=== PATIENT | female | born 1995 | race African-American/Black ===

== ENCOUNTER 2019-06-27 15:51 | Emergency (ER) | payer OTHER ==
[~2019-06-27] VITALS: Ht 160 cm; Wt 81.6 kg
--- NOTE | 2019-06-27 16:13 | ED Respiratory ---
General Chief Complaint: Respiratory Problems Stated Complaint: ELEVATED HEARTRATE Nursing Triage Note: PATIENT STATES HAS BEEN TRAVELING [facility] 05-30 TO 06-11 AND [facility] JUNE 19 COUGH, STARTED FEVER AND DIARRHEA SINCE YESTERDAY. SORE THROAT OFF AND ON SINCE LAST WEEK. PATIENT TESTED NEGATIVE STREPT AND FLU. [facility] TESTED PATIENT FOR COVID VIRUS. Source: patient Exam Limitations: no limitations History of Present Illness Date Seen by Provider: Jun 27, 2019 Time Seen by Provider: 15:55 Initial Comments The patient is a very pleasant 23-year-old female who presents for evaluation of cough, fever, shortness of breath, and possible COVID-19. 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 On June 19 she noticed a cough and some mild shortness of b reath a few days later. Yesterday she noticed the fever and some loose stools. She's had a sore throat on and off for the last week as well. Yesterday the patient went to the [facility] outpatient clinic and was tested for strep pharyngitis and influenza. Both those tests were negative so she was then tested for COVID- 19. We are told that tests may take up to 7 days to resolve. She presents to the ER today as there is concern that the patient could be septic because she is tachycardic and not feeling well. On arrival the patient is saturating 99% on room air. She was febrile earlier today and took some Tylenol. She denies neck pain or neck stiffness, rash, headache, abdominal or back pain, urinary complaints, palpitations, dizziness or syncope. She is alert and oriented 4, calm, answering questions appropriately, and appears to be in no distress. Timing/Duration: just prior to arrival Severity: moderate Associated Symptoms: cough, fever/chills, nasal congestion, shortness of breath, sore throat Allergies and Home Medications Allergies Coded Allergies: No Known Drug Allergies (Unverified , 06/27/19) Patient Home Medication List Home Medication List Reviewed: Yes Review of Systems Review of Systems Constitutional: chills, fever EENTM: throat pain Respiratory: cough, short of breath Cardiovascular: no symptoms reported Gastrointestinal: diarrhea Genitourinary: no symptoms reported : No Musculoskeletal: no symptoms reported Skin: no symptoms reported Psychiatric/Neurological: No Symptoms Reported Hematologic/Lymphatic: No Symptoms Reported Immunological/Allergic: no symptoms reported All Other Systems Reviewed Negative Unless Noted: Yes Past Dybgkmp-Jeowbf-Xdfyak Hx Past Med/Social Hx: Reviewed Nursing Past Med/Soc Hx Patient Social History Recent Foreign Travel: No Contact w/Someone Who Travel: No Recent Infectious Disease Expo: No Physical Exam Vital Signs - First Documented 06/27/19 15:57 Temp 37.3 Pulse 106 Resp 18 B/P (MAP) 131/86 (101) Pulse Ox 97 O2 Delivery Room Air Capillary Refill : Less Than 3 Seconds Height: '" Weight: lbs. oz. 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, no motor/sensory deficits, alert, normal mood/affect, oriented x 3 Skin: normal color, warm/dry Focused Exam Lactate Level 06/27/19 16:10: Lactic Acid Level 1.79 Lactic Acid Level Laboratory Tests Test 06/27/19 16:10 Lactic Acid Level 1.79 MMOL/L (0.50-2.00) Progress/Results/Core Measures Suspected Sepsis Recent Fever Within 48 Hours: Yes Infection Criteria Present: Suspected New Infection New/Unexplained Altered Menta: No Sepsis Screen: Possible Severe Sepsis Risk SIRS Temperature: Pulse: 106 Respiratory Rate: 18 Laboratory Tests 06/27/19 16:10: White Blood Count 6.0 Blood Pressure 131 /86 Mean: 101 06/27/19 16:10: Lactic Acid Level 1.79 Laboratory Tests 06/27/19 16:10: Creatinine 0.88, Platelet Count 219, Total Bilirubin 0.2 Results/Orders Lab Results Laboratory Tests Test 06/27/19 16:10 06/27/19 16:29 Range/Units White Blood Count 6.0 4.3-11.0 10^3/uL Red Blood Count 5.33 4.35-5.85 10^6/uL Hemoglobin 14.3 11.5-16.0 G/DL Hematocrit 43 35-52 % Mean Corpuscular Volume 80 80-99 FL Mean Corpuscular Hemoglobin 27 25-34 PG Mean Corpuscular Hemoglobin Concent 34 32-36 G/DL Red Cell Distribution Width 13.7 10.0-14.5 % Platelet Count 219 130-400 10^3/uL Mean Platelet Volume 10.1 7.4-10.4 FL Neutrophils (%) (Auto) 71 42-75 % Lymphocytes (%) (Auto) 19 12-44 % Monocytes (%) (Auto) 9 0-12 % Eosinophils (%) (Auto) 0 0-10 % Basophils (%) (Auto) 0 0-10 % Neutrophils # (Auto) 4.3 1.8-7.8 X 10^3 Lymphocytes # (Auto) 1.1 1.0-4.0 X 10^3 Monocytes # (Auto) 0.6 0.0-1.0 X 10^3 Eosinophils # (Auto) 0.0 0.0-0.3 10^3/uL Basophils # (Auto) 0.0 0.0-0.1 10^3/uL Sodium Level 134 L 135-145 MMOL/L Potassium Level 3.5 L 3.6-5.0 MMOL/L Chloride Level 99 98-107 MMOL/L Carbon Dioxide Level 20 L 21-32 MMOL/L Anion Gap 15 H 5-14 MMOL/L Blood Urea Nitrogen 9 7-18 MG/DL Creatinine 0.88 0.60-1.30 MG/DL Estimat Glomerular Filtration Rate > 60 BUN/Creatinine Ratio 10 Glucose Level 147 H 70-105 MG/DL Lactic Acid Level 1.79 0.50-2.00 MMOL/L Calcium Level 9.3 8.5-10.1 MG/DL Corrected Calcium 9.3 8.5-10.1 MG/DL Total Bilirubin 0.2 0.1-1.0 MG/DL Aspartate Amino Transf (AST/SGOT) 31 5-34 U/L Alanine Aminotransferase (ALT/SGPT) 28 0-55 U/L Alkaline Phosphatase 60 40-136 U/L Total Protein 7.7 6.4-8.2 GM/DL Albumin 4.0 3.2-4.5 GM/DL Urine Color YELLOW Urine Clarity SLT CLOUDY Urine pH 7.0 5-9 Urine Specific [place] 1.020 1.016-1.022 Urine Protein NEGATIVE NEGATIVE Urine Glucose (UA) NEGATIVE NEGATIVE Urine Ketones NEGATIVE NEGATIVE Urine Nitrite NEGATIVE NEGATIVE Urine Bilirubin NEGATIVE NEGATIVE Urine Urobilinogen 0.2 < = 1.0 MG/DL Urine Leukocyte Esterase TRACE H NEGATIVE Urine RBC (Auto) NEGATIVE NEGATIVE Urine RBC NONE /HPF Urine WBC 2-5 /HPF Urine Squamous Epithelial Cells 2-5 /HPF Urine Crystals NONE /LPF Urine Bacteria TRACE /HPF Urine Casts NONE /LPF Urine Mucus SMALL H /LPF Urine Culture Indicated NO Urine Test NEGATIVE NEGATIVE My Orders Orders - MENDOZA MONACO DO Cbc With Automated Diff (06/27/19 15:52) Comprehensive Metabolic Panel (06/27/19 15:52) Blood Culture (06/27/19 15:52) Urinalysis (06/27/19 15:52) Urine Culture (06/27/19 15:52) Chest 1 View Ap/Pa Only (06/27/19 15:52) Ed Iv/Invasive Line Start (06/27/19 15:52) Vital Signs Adult Sepsis Patie Q15M (06/27/19 15:52) O2 (06/27/19 15:52) Lactic Acid Analyzer (06/27/19 15:52) Gear Technician (06/27/19 15:52) Continuous Pulse Ox (06/27/19 15:52) Ns Iv 1000 Ml (Sodium Chloride 0.9%) (06/27/19 16:15) Ketorolac Injection (Toradol Injection) (06/27/19 16:15) Urine Bedside (06/27/19 16:04) Hcg,Qualitative Urine (06/27/19 16:37) Medications Given in ED Current Medications Medications Dose Ordered Sig/Sharon Route Start Time Stop Time Status Last Admin Dose Admin Ketorolac Tromethamine 30 mg ONCE ONCE IVP 06/27/19 16:15 06/27/19 16:16 DC 06/27/19 16:19 30 MG Vital Signs/I&O 06/27/19 15:57 Temp 37.3 Pulse 106 Resp 18 B/P (MAP) 131/86 (101) Pulse Ox 97 O2 Delivery Room Air Capillary Refill : Less Than 3 Seconds Blood Pressure Mean: 101 Progress Note : Progress Note @1718 - The patient has been updated on her lab and imaging results which are acutely unremarkable. She is saturating well on room air and is not in any respiratory distress. She is comfortable going home. Advised the patient to pro ceed with the 14 day self quarantine and she'll be notified of her COVID-19 test results when they become available. Advised the patient to follow up with her doctor in the next 1-2 days by calling their office and to return to the emergency Department immediately if she feels short of breath, new or worsening symptoms. She expresses verbal understanding and is in agreement with the plan. Departure Impression Primary Impression: Fever Additional Impression: Acute URI Disposition: HOME, SELF-CARE Condition: Stable Departure-Patient Inst. Decision time for Depature: 17:20 Referrals: NO,LOCAL PHYSICIAN (PCP/Family) Primary Care Physician Patient Instructions: COVID19, Cough, Adult (DC), Viral Upper Respiratory Infection, Adult (DC) Add. Discharge Instructions: You were previously tested for COVID-19 and the results are pending. Follow-up with your doctor in the next 1-2 days by calling their office. Unfortunately, the test could take another 5-7 days result due to demand. Drink plenty of fluids at home to stay well hydrated. Continue to take Tylenol at home for fevers as needed. Self-quarantine away from others for at least 14 days. MENDOZA MONACO DO Jun 27, 2019 16:13
[2019-06-27] MEDS ORDERED: KETOROLAC 30 MG/ML VIAL IVP ONE (16:15)
[2019-06-27] MEDS ORDERED: NS IV 1000 ML 1,000 ML IV SCH (16:15)
[2019-06-27 16:39] LABS: EOSINOPHILS % (AUTO) 0 % (0-10); HEMATOCRIT 43 % (35-52); HEMOGLOBIN 14.3 G/DL (11.5-16.0); LYMPHOCYTES % (AUTO) 19 % (12-44); MEAN CORPUSCULAR HEMOGLOBIN 27 PG (25-34); MEAN CORPUSCULAR HGB CONC 34 G/DL (32-36); MEAN CORPUSCULAR VOLUME 80 FL (80-99); MEAN PLATELET VOLUME 10.1 FL (7.4-10.4); MONOCYTES % (AUTO) 9 % (0-12); NEUTROPHILS % (AUTO) 71 % (42-75); PLATELET COUNT 219 10^3/uL (130-400); RED CELL DISTRIBUTION WIDTH 13.7 % (10.0-14.5)
[2019-06-27 16:40] LABS: BASOPHILS % (AUTO) 0 % (0-10); LYMPHOCYTES # (AUTO) 1.1 X 10^3 (1.0-4.0); MONOCYTES # (AUTO) 0.6 X 10^3 (0.0-1.0); NEUTROPHILS # (AUTO) 4.3 X 10^3 (1.8-7.8)
[2019-06-27 16:48] LABS: BACTERIA,URINE TRACE /HPF; BILIRUBIN,URINE NEGATIVE (NEGATIVE); CLARITY,URINE SLT CLOUDY; COLOR,URINE YELLOW; GLUCOSE, URINE (UA) NEGATIVE (NEGATIVE); KETONES,URINE NEGATIVE (NEGATIVE); LEUKOCYTE ESTERASE ,URINE TRACE (NEGATIVE); NITRITE,URINE NEGATIVE (NEGATIVE); PROTEIN,URINE NEGATIVE (NEGATIVE)
[2019-06-27 16:52] LABS: POTASSIUM 3.5 MMOL/L (3.6-5.0); SODIUM 134 MMOL/L (135-145)
--- NOTE | 2019-06-27 16:52 | Diagnostic Imaging Report ---
INDICATION: Cough and fever. TECHNIQUE: PA chest obtained at 4:40 PM. FINDINGS: The heart and mediastinal silhouette are normal in appearance. The lungs are clear. There is no pneumothorax or pleural fluid. IMPRESSION: Negative chest. Dictated by: Dictated on workstation # [id number]
[2019-06-27 16:53] LABS: ALANINE AMINOTRANSFERASE 28 U/L (0-55); ALKALINE PHOSPHATASE 60 U/L (40-136); BILIRUBIN,TOTAL 0.2 MG/DL (0.1-1.0); BUN/CREATININE RATIO 10; CALCIUM 9.3 MG/DL (8.5-10.1); CARBON DIOXIDE 20 MMOL/L (21-32); CHLORIDE 99 MMOL/L (98-107); CREATININE SERUM 0.88 MG/DL (0.60-1.30); GFR ESTIMATED > 60; GLUCOSE 147 MG/DL (70-105); TOTAL PROTEIN 7.7 GM/DL (6.4-8.2)
[2019-06-27 17:25] VITALS: BP 136/80
== END 2019-06-27 17:25 | disposition home or self-care (01) ==
LOC: ER FS 15:53
DX: J06.9 Acute upper respiratory infection, unspecified (principal)
CPT/HCPCS: 36415; 71045; 80053; 81000; 83605; 84703; 85025; 87040; 87088

== ENCOUNTER 2019-06-30 13:58 | Emergency (ER) | payer OTHER ==
[~2019-06-30] VITALS: Ht 160 cm; Wt 81.8 kg
[2019-06-30] MEDS ORDERED: NS IV 1000 ML 1,000 ML IV ONE (14:45)
--- NOTE | 2019-06-30 14:47 | ED Abdominal Pain ---
General Chief Complaint: Abdominal/GI Problems Stated Complaint: FEVER; SUPRAPUBIC PAIN Sepsis Screen: Possible Severe Sepsis Risk Source of Information: Patient Exam Limitations: No Limitations History of Present Illness Date Seen by Provider: Jun 30, 2019 Time Seen by Provider: 14:25 Initial Comments 23-year-old female presents to the emergency room reporting that she had a temperature 103.5 oral taken about 2 hours before she came to the emergency room. The patient has a picture of a digital thermometer with a temperature of 103.5. Patient complains of suprapubic pain. This is a fourth visit for this patient within the past week for evaluation of abdominal pain and fever. Patient has had 2 visits in [facility] including comprehensive gynecologic examination and STI screening. Patient also was seen in the emergency room by Dr. Rodriguez on 06/27/19. Patient reports that she did get tested earlier this week was negative for strep influenza and was told that she was negative for COVID- 19. 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 She states that she was in [facility] from May 30 to June 11. She had 1 day in [place] but does not remember the day and from June 19 of June 22 she was in [facility]. Patient states that she's had a cough and suprapubic pain. She has been placing Diflucan azithromycin Zofran and dicyclomine. She also took Tylenol after fever of 103.5. Patient denies any history of cardiovascular or renal disease. Patient has no known allergies. She does admit to continued fever and chills with throat pain and suprapubic pain. Patient is given informed consent for diagnostic and therapeutic services. Timing/Duration: 1 Week (of progressive fevers sore throat and suprapubic pain with a negative gynecologic examination 3 days ago) Severity/Quality: Moderate, Aching, Dull Location: Suprapubic, Other (also associated with a clear to slightly yellow discharge from the vagina but had a full gynecologic examination this week) Radiation: No Radiation Activities at Onset: Activity (traveling) Modifying Factors: Improves With Analgesics, Improves With Urinating Associated Symptoms: Fever/Chills, Fatigue, Nausea/Vomiting, Weakness Allergies and Home Medications Allergies Coded Allergies: No Known Drug Allergies (Unverified , 06/27/19) Patient Home Medication List Home Medication List Reviewed: Yes Review of Systems Review of Systems Constitutional: chills, fever, malaise, weakness (over the past week) EENTM: Throat Pain Respiratory: Cough Cardiovascular: No Symptoms Reported Gastrointestinal: Abdominal Pain (suprapubic), Nausea Genitourinary: Burning, Discharge, Drainage (vaginal), Pain (suprapubic) Musculoskeletal: back pain (generalized muscle spasms) Skin: no symptoms reported Psychiatric/Neurological: Anxiety Endocrine: No Symptoms Reported Hematologic/Lymphatic: No Symptoms Reported Past Ohjgeoz-Dmmove-Vemhsd Hx Past Med/Social Hx: Reviewed Nursing Past Med/Soc Hx Patient Social History Alcohol Use: Denies Use Recreational Drug Use: No Smoking Status: Never a Smoker 2nd Hand Smoke Exposure: No Recent Foreign Travel: No Contact w/Someone Who Travel: No Recent Infectious Disease Expo: Yes (travel late May-early Jun [place], [place] and [place]) Recent Hopitalizations: No Physical Abuse: No Sexual Abuse: No Mistreated: No Fear: No Immunizations Up To Date Tetanus Booster (TDap): Less than 5yrs Date of Influenza Vaccine: Jan 03, 2019 Seasonal Allergies Seasonal Allergies: Yes Past Medical History Surgeries: No Respiratory: No Cardiac: No Neurological: No Genitourinary: No Gastrointestinal: No Musculoskeletal: No Endocrine: No HEENT: No Cancer: No Psychosocial: No Integumentary: No Blood Disorders: No Physical Exam Vital Signs Vital Signs - First Documented 06/30/19 14:05 Temp 36.9 Pulse 106 Resp 16 B/P (MAP) 114/75 (88) Pulse Ox 96 O2 Delivery Room Air Capillary Refill : Less Than 3 Seconds Height/Weight/BMI Height: '" Weight: lbs. oz. kg; 31.00 BMI Method: General Appearance: WD/WN, moderate distress (secondary to fever that is now resolved and patient reports nausea), obese (. 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 that her first sergeant is aware of her being sick) HEENT: PERRL/EOMI, normal ENT inspection, pharynx normal Neck: non-tender, full range of motion, supple, normal inspection Respiratory: chest non-tender, lungs clear, normal breath sounds, no respiratory distress, no accessory muscle use Cardiovascular: regular rate, rhythm, no edema, no gallop, no JVD, no murmur Peripheral Pulses: 2+ Carotid (R), 2+ Carotid (L) Gastrointestinal: normal bowel sounds, non tender, soft, no organomegaly, no pulsatile mass, other (minor discomfort in the suprapubic area) Extremities: normal range of motion, non-tender, normal inspection, no pedal edema, no calf tenderness Back: normal inspection, no CVA tenderness, no vertebral tenderness 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, no motor/sensory deficits, alert, normal mood/affect, oriented x 3 (but somewhat anxious) Skin: normal color, warm/dry Lymphatic: no adenopathy Focused Exam Lactate Level 06/30/19 14:45: Lactic Acid Level 0.80 Lactic Acid Level Laboratory Tests Test 06/30/19 14:45 Lactic Acid Level 0.80 MMOL/L (0.50-2.00) Progress/Results/Core Measures Results/Orders Lab Results Laboratory Tests Test 06/30/19 14:10 06/30/19 14:45 06/30/19 15:07 Range/Units Urine Color YELLOW Urine Clarity CLEAR Urine pH 7.5 5-9 Urine Specific [place] 1.015 L 1.016-1.022 Urine Protein NEGATIVE NEGATIVE Urine Glucose (UA) NEGATIVE NEGATIVE Urine Ketones TRACE H NEGATIVE Urine Nitrite NEGATIVE NEGATIVE Urine Bilirubin NEGATIVE NEGATIVE Urine Urobilinogen 0.2 < = 1.0 MG/DL Urine Leukocyte Esterase NEGATIVE NEGATIVE Urine RBC (Auto) NEGATIVE NEGATIVE Urine RBC NONE /HPF Urine WBC RARE /HPF Urine Squamous Epithelial Cells 2-5 /HPF Urine Crystals NONE /LPF Urine Bacteria NEGATIVE /HPF Urine Casts NONE /LPF Urine Mucus SMALL H /LPF Urine Culture Indicated NO Urine Test NEGATIVE NEGATIVE Urine Opiates Screen NEGATIVE NEGATIVE Urine Oxycodone Screen NEGATIVE NEGATIVE Urine Methadone Screen NEGATIVE NEGATIVE Urine Propoxyphene Screen NEGATIVE NEGATIVE Urine Barbiturates Screen NEGATIVE NEGATIVE Ur Tricyclic Antidepressants Screen NEGATIVE NEGATIVE Urine Phencyclidine Screen NEGATIVE NEGATIVE Urine Amphetamines Screen NEGATIVE NEGATIVE Urine Methamphetamines Screen NEGATIVE NEGATIVE Urine Benzodiazepines Screen NEGATIVE NEGATIVE Urine Cocaine Screen NEGATIVE NEGATIVE Urine Cannabinoids Screen NEGATIVE NEGATIVE White Blood Count 5.2 4.3-11.0 10^3/uL Red Blood Count 5.22 4.35-5.85 10^6/uL Hemoglobin 14.0 11.5-16.0 G/DL Hematocrit 42 35-52 % Mean Corpuscular Volume 81 80-99 FL Mean Corpuscular Hemoglobin 27 25-34 PG Mean Corpuscular Hemoglobin Concent 33 32-36 G/DL Red Cell Distribution Width 13.7 10.0-14.5 % Platelet Count 151 130-400 10^3/uL Mean Platelet Volume 10.4 7.4-10.4 FL Neutrophils (%) (Auto) 73 42-75 % Lymphocytes (%) (Auto) 20 12-44 % Monocytes (%) (Auto) 7 0-12 % Eosinophils (%) (Auto) 0 0-10 % Basophils (%) (Auto) 0 0-10 % Neutrophils # (Auto) 3.8 1.8-7.8 X 10^3 Lymphocytes # (Auto) 1.0 1.0-4.0 X 10^3 Monocytes # (Auto) 0.4 0.0-1.0 X 10^3 Eosinophils # (Auto) 0.0 0.0-0.3 10^3/uL Basophils # (Auto) 0.0 0.0-0.1 10^3/uL Neutrophils % (Manual) 48 % Lymphocytes % (Manual) 20 % Monocytes % (Manual) 8 % Eosinophils % (Manual) 0 % Basophils % (Manual) 0 % Band Neutrophils 24 % Blood Morphology Comment NORMAL Sodium Level 138 135-145 MMOL/L Potassium Level 4.0 3.6-5.0 MMOL/L Chloride Level 101 98-107 MMOL/L Carbon Dioxide Level 25 21-32 MMOL/L Anion Gap 12 5-14 MMOL/L Blood Urea Nitrogen 6 L 7-18 MG/DL Creatinine 0.96 0.60-1.30 MG/DL Estimat Glomerular Filtration Rate > 60 BUN/Creatinine Ratio 6 Glucose Level 110 H 70-105 MG/DL Lactic Acid Level 0.80 0.50-2.00 MMOL/L Calcium Level 8.9 8.5-10.1 MG/DL Corrected Calcium 9.0 8.5-10.1 MG/DL Total Bilirubin 0.2 0.1-1.0 MG/DL Aspartate Amino Transf (AST/SGOT) 30 5-34 U/L Alanine Aminotransferase (ALT/SGPT) 34 0-55 U/L Alkaline Phosphatase 58 40-136 U/L Total Protein 7.6 6.4-8.2 GM/DL Albumin 3.9 3.2-4.5 GM/DL Group A Streptococcus Screen NEGATIVE NEGATIVE Micro Results Microbiology 06/30/19 Influenza Types A,B Antigen (DINORA) - Final, Complete My Orders Orders - ZENIA SHARP DO Cbc And Manual Diff (06/30/19 14:35) Comprehensive Metabolic Panel (06/30/19 14:35) Urinalysis (06/30/19 14:10) Hcg,Qualitative Urine (06/30/19 14:35) Drug Screen Stat (Urine) (06/30/19 14:35) Chlamydia Trachomatis Urine (06/30/19 14:35) Chest 1 View Ap/Pa Only (06/30/19 14:35) Ns Iv 1000 Ml (Sodium Chloride 0.9%) (06/30/19 14:45) Lactic Acid Analyzer (06/30/19 14:35) Influenza A And B Antigens (06/30/19 14:35) Rapid Strep A Screen (06/30/19 14:35) Medications Given in ED Current Medications Medications Dose Ordered Sig/Sharon Route Start Time Stop Time Status Last Admin Dose Admin Sodium Chloride 1,000 ml @ 999 mls/hr Q1H ONCE IV 06/30/19 14:45 06/30/19 15:45 DC 06/30/19 15:05 999 MLS/HR Vital Signs/I&O 06/30/19 06/30/19 06/30/19 14:05 15:18 16:00 Temp 36.9 38.1 38.1 Pulse 106 Resp 16 B/P (MAP) 114/75 (88) Pulse Ox 96 O2 Delivery Room Air Blood Pressure Mean: 88 Progress Progress Note : Time: 16:45 Progress Note Patient is a mostly upset because she wanted a sonogram but we do not have a sonogram available. Patient also is upset because I told her that I believe she has a viral illness in addition to her vaginitis complaints. She had a gynecologic examination recently and I did not see a need to repeat a gyneco logic exam. Patient admits that she was using a vaginal cup and this may have complicated her findings she has stopped using that since that she has copious vaginal discharge that was diagnosed on the gynecologic examination in the [facility]. Patient is currently taking azithromycin and Diflucan for these findings. Repeat PCR examination for gonorrhea and chlamydia is pending but she is already on azithromycin. Patient is slightly dehydrated and recommended a second liter of fluids and she refused. Patient was given supportive education in regard to treating a viral illness at home with fluids rest Tylenol and continue treatment for her gynecologic issues. She feels that we have not diagnosed or problem she was very angry that this is called a viral illness. Recommended that she speak with her command in regard to further evaluation and care I rasher socially isolate and that if she should get shortness of breath coughing up sputum of green or yellow or any evidence of a lower tract respiratory infection please return to the emergency room. Patient did have a temperature oral 99.5 time of discharge. I reviewed the labs with the patient in detail. On June 26 her white count was 6.0 June 29 5.2 lactate is decreased from 1.79-0.80 hemoglobin 14.3 and remains 14.0 sodium was 134 and now is 138 potassium 3.5 now was 4.0 her specific gravity was 1.020 and now it's 1.015 with rare WBCs compared to 2-5 WBCs on 28 June. Departure Impression Primary Impression: Dehydration Additional Impressions: Viral illness Vaginitis Disposition: HOME, SELF-CARE Condition: Improved Departure-Patient Inst. Referrals: NO,LOCAL PHYSICIAN (PCP/Family) Primary Care Physician Patient Instructions: Dehydration, Adult (DC), Viral Gastroenteritis, Adult (DC), Vaginitis Copy Copies To 1: [facility]/ZENIA COVINGTON DO Jun 30, 2019 14:47
[2019-06-30 14:51] LABS: HCG,QUALITATIVE URINE NEGATIVE (NEGATIVE)
--- OUTSIDE RECORDS SUMMARY | 2019-06-30 14:54 | XMS REPORT | Continuity of Care Document ---
Author Organization Unknown Address Unknown Phone Unavailable Allergies Active Description Code Type Severity Reaction Onset Reported/Identified Relationship to Patient Clinical Status Yes NO NAME AVAILABLE 25197 DRUG N/A N/A Yes No Known Drug Allergies [id number] Drug Allergy Unknown N/A 06/27/2019 Medications Medication Packaging Start Date St op Date Route Dosage Sig SODIUM CHLORIDE 0.9 % IV BOLUS 11/08/2016 11/09/2016 Intravenous 1000 BOLUS Problems Date Dx Coded Attending Type Code Diagnosis Diagnosed By 11/08/2016 CLARISSE STAHL V 52 Headache CLARISSE STAHL 11/08/2016 CLARISSE STAHL V G44.209 Tension-type headache, unspecified, not intractable CLARISSE BAEZ Procedures There is no data. Results Test Result Range URINALYSIS, REFLEX CULTURE IF NEEDED - 0 11/08/16 10:05 APPEARANCE Clear [none] BACTERIA 1+ [none] BILIRUBIN UA Negative Negative COLOR Light-Yellow [none] GLUCOSE UA Negative Negative HEMOGLOBIN UA Negative Negative LEUKOCYTE ESTERASE UA Negative Negative NITRATE UA Negative Negative PH UA 7.0 5.0-8.0 PROTEIN UA Negative Negative RBC UA 0-3 /HPF 0-3 SPECIFIC GRAVITY UA 1.003 1.003-1.03 0 SQUAMOUS EPITHELIAL 2+ 1+ UROBILINOGEN UA 0.2 mg/dL 0.2 WBC UA 0-3 /HPF 0-3 [id number] Negative Negative CBC WITH AUTO DIFFERENTIAL - 11/08/16 11 :40 BASOPHILS RELATIVE PERCENT 0.4 % 0.0 -2.5 EOSINOPHILS RELATIVE PERCENT 0.3 % < =5.0 HEMATOCRIT 37.1 % 34.9-44.5 HEMOGLOBIN 12.7 g/dL 12.0-15.5 LYMPHOCYTES RELATIVE PERCENT 20.0 % 2 2.0-49.0 MEAN CORPUSCULAR HEMOGLOBIN 27.7 pg 26 .0-34.0 MEAN CORPUSCULAR HEMOGLOBIN CONC 34.2 g/dL 31.0-37.0 MEAN CORPUSCULAR VOLUME 81.0 fL 81.6-9 8.3 MONOCYTES RELATIVE PERCENT 5.5 % 2.0 -9.0 NEUTROPHILS RELATIVE PERCENT 73.8 % 4 0.0-75.0 NUCLEATED RED BLOOD CELLS 0 /100 <=0 PLATELET COUNT 184 10E9/L 150-450 RED BLOOD CELL COUNT 4.58 10E12/L 3.90-5 .03 RED CELL DISTRIBUTION WIDTH 14.5 % 11 .9-15.5 [id number] 10.1 10E9/L 3.5-10.5 [id number] 2.02 10E9/L 0.90-2.90 5245837 0.56 10E9/L 0.30-0.90 8111826 0.03 10E9/L 0.05-0.50 [id number] 7.45 10E9/L 1.70-7.00 [id number] 0.04 10E9/L 0.00-0.30 [id number] 0 % COMPREHENSIVE METABOLIC PANEL - 11/08/16 11:40 ALBUMIN 3.8 g/dL 3.4-4.8 ALKALINE PHOSPHATASE 58 U/L 29-122 ALT 19 U/L 10-46 ANION GAP 6 AST 17 U/L 16-37 BILIRUBIN,TOTAL 0.4 mg/dL 0.2-1.3 BUN BLOOD 5 mg/dL 6-20 CALCIUM 8.7 mg/dL 8.7-10.5 CHLORIDE 105 mmol/L 99-111 CO2 25 mmol/L 20-36 CREATININE 0.45 mg/dL 0.40-1.10 EGFR > mL/min >59 GLUCOSE 87 mg/dL 74-106 POTASSIUM 3.7 mmol/L 3.6-4.9 PROTEIN TOTAL 6.7 g/dL 6.4-8.3 SODIUM 136 mmol/L 136-145 LIPASE - 11/08/16 11:40 LIPASE 34 U/L 6-51 CULTURE, URINE - 07/31/18 10:55 CULTURE, URINE, ROUTINE SEE NOTE NRG GC/CHLAMYDIA (SWAB OR URINE)-RAPID - 12/22 15:10 CHLAMYDIA TRACHOMATIS RNA, TMA DETECTED NOT DETECTED NEISSERIA GONORRHOEAE RNA, TMA NOT DETECTED NOT DETECTED COMMENT NRG HCG, QUANTITATIVE - 03/13/19 15:55 HCG, TOTAL, QN <2 mIU/mL NRG CULTURE, URINE - 04/22/19 13:13 CULTURE, URINE, ROUTINE SEE NOTE NRG CULTURE, VAGINAL YEAST - 04/22/19 13:13 CULTURE, YEAST, W/DIRECT FLUORESCENT ANNY SEE NOTE NRG GC/CHLAMYDIA (SWAB OR URINE)-RAPID - 13:13 CHLAMYDIA TRACHOMATIS RNA, TMA TNP NRG GC/CHLAMYDIA (SWAB OR URINE)-RAPID - 15:05 CHLAMYDIA TRACHOMATIS RNA, TMA NOT DETECTED NOT DETECTED NEISSERIA GONORRHOEAE RNA, TMA NOT DETECTED NOT DETECTED COMMENT NRG SUREPATH PAP RFX HPV mRNA E6/E7 - 15:05 CLINICAL INFORMATION: NRG LMP: UNK NRG PREV. PAP: YES NRG PREV. BX: NO NRG SOURCE: Cervix NRG STATEMENT OF ADEQUACY: NRG INTERPRETATION/RESULT: NRG INTEGRATION SOFTWARE ENGINEER: NRG COMMENT NRG CULTURE, URINE - 05/03/19 15:20 CULTURE, URINE, ROUTINE SEE NOTE NRG Complete blood count (CBC) with automate d white blood cell (WBC) differential - 06/27/19 16:10 Blood leukocytes automated count (number/volume) 6.0 10*3/uL 4.3-11.0 Blood erythrocytes automated count (number/volume) 5.33 10*6/uL 4.35-5.85 Venous blood hemoglobin measurement (mass/volume) 14.3 g/dL 11.5-16.0 Blood hematocrit (volume fraction) 43 % 35-52 Automated erythrocyte mean corpuscular volume 80 [ foz_us] 80-99 Automated erythrocyte mean corpuscular h emoglobin (mass per erythrocyte) 27 pg 25-34 Automated erythrocyte mean corpuscular h emoglobin concentration measurement (mass/volume) 34 g/dL 32-36 Automated erythrocyte distribution width ratio 13. 7 % 10.0- 14.5 Automated blood platelet count (count/volume) 219 10*3/uL 130-400 Automated blood platelet mean volume measurement 10.1 [foz_us] 7.4-10.4 Automated blood neutrophils/100 leukocytes 71 % 42-75 Automated blood lymphocytes/100 leukocytes 19 % 12-44 Blood monocytes/100 leukocytes 9 % 0-12 Automated blood eosinophils/100 leukocytes 0 % 0-10 Automated blood basophils/100 leukocytes 0 % 0-10 Blood neutrophils automated count (number/volume) 4.3 10*3 1.8-7.8 Blood lymphocytes automated count (number/volume) 1.1 10*3 1.0-4.0 Blood monocytes automated count (number/volume) 0. 6 10*3 0.0-1.0 Automated eosinophil count 0.0 10*3/uL 0 .0-0.3 Automated blood basophil count (count/volume) 0.0 10*3/uL 0.0-0.1 Blood lactic acid measurement (moles/vol ume) - 06/27/19 16:10 Blood lactic acid measurement (moles/volume) 1.79 mmol/L 0.50-2.00 Comprehensive metabolic panel - 06/27/19 16:10 Serum or plasma sodium measurement (moles/volume) 134 mmol/L 135-145 Serum or plasma potassium measurement (moles/volume) 3.5 mmol/L 3.6-5.0 Serum or plasma chloride measurement (moles/volume) 99 mmol/L 98-107 Carbon dioxide 20 mmol/L 21-32 Serum or plasma anion gap determination (moles/volume) 15 mmol/L 5-14 Serum or plasma urea nitrogen measurement (mass/volume ) 9 mg/dL 7-18 Serum or plasma creatinine measurement (mass/volume) 0.88 mg/dL 0.60-1.30 Serum or plasma urea nitrogen/creatinine mass ratio 10 NRG Serum or plasma creatinine measurement w ith calculation of estimated glomerular filtration rate > NRG Serum or plasma glucose measurement (mass/volume) 147 mg/dL 70-105 Serum or plasma calcium measurement (mass/volume) 9.3 mg/dL 8.5-10.1 Serum or plasma total bilirubin measurement (mass/volu me) 0.2 mg/dL 0.1-1.0 Serum or plasma alkaline phosphatase joel surement (enzymatic activity/volume) 60 U/L 40-136 Serum or plasma aspartate aminotransfera se measurement (enzymatic activity/volume) 31 U/L 5-34 Serum or plasma alanine aminotransferase measurement (enzymatic activity/volume) 28 U/L 0-55 Serum or plasma protein measurement (mass/volume) 7.7 g/dL 6.4-8.2 Serum or plasma albumin measurement (mass/volume) 4.0 g/dL 3.2-4.5 CALCIUM CORRECTED 9.3 mg/dL 8.5-10.1 Bacterial blood culture - 06/27/19 16:10 Bacterial blood culture NG NRG Bacterial blood culture - 06/27/19 16:20 Bacterial blood culture NG NRG Complete urinalysis with reflex to cultu re - 06/27/19 16:29 Urine color determination YELLOW NRG Urine clarity determination SLT CLOUDY NRG Urine pH measurement by test strip 7.0 5-9 Specific gravity of urine by test strip 1.020 1.016-1.022 Urine protein assay by test strip, semi-quantitative NEGATIVE NEGATIVE Urine glucose detection by automated test strip NE GATIVE NEGATIVE Erythrocytes detection in urine sediment by light micr oscopy NEGATIVE NEGATIVE Urine ketones detection by automated test strip NE GATIVE NEGATIVE Urine nitrite detection by test strip NEGATIVE NEGATIVE Urine total bilirubin detection by test strip NEGA TIVE NEGATIVE Urine urobilinogen measurement by automated test strip (mass/volume) 0.2 mg/dL < = 1.0 Urine leukocyte esterase detection by dipstick TRA CE NEGATIVE Automated urine sediment erythrocyte cou nt by microscopy (number/high power field) NONE NRG Automated urine sediment leukocyte count by microscopy (number/high power field) [HPF] NRG Bacteria detection in urine sediment by light microsco py TRACE NRG Squamous epithelial cells detection in u rine sediment by light microscopy 2-5 NRG Crystals detection in urine sediment by light microsco py NONE NRG Casts detection in urine sediment by light microscopy NONE NRG Mucus detection in urine sediment by light microscopy SMALL NRG Complete urinalysis with reflex to culture NO NRG Urine beta human chorionic gonadotropin (hCG) measurement - 06/27/19 16:29 Urine beta human chorionic gonadotropin (hCG) measurem ent NEGATIVE NEGATIVE Bacterial urine culture - 06/27/19 16:29 Bacterial urine culture 3 OR MORE NRG COLONY COUNT 20,000 CFU/ML NRG SUSCEPTIBILITY GRAM POSITIVES, SUGGESTING PROBABLE NRG MRSA SCREEN COLLECTION CONTAMINATION WITH SKIN CHRISTINE RA NRG RAPID ID NO SUSCEPTIBILITY PERFORMED N RG Urine beta human chorionic gonadotropin (hCG) measurement - 06/30/19 14:10 Urine beta human chorionic gonadotropin (hCG) measurem ent NEGATIVE NEGATIVE Encounters ACCT No. Visit Date/Time Discharge Status Pt. Type Provider Facility Loc./Unit Complaint [id number] 06/29/2019 08:00:00 [id number] 05/03/2019 15:00:00 Document Registration [id number] 04/28/2019 14:20:00 Document Registration [id number] 04/22/2019 11:40:00 Document Registration [id number] 03/13/2019 15:00:00 Document Registration [id number] 07/31/2018 10:20:00 Document Registration [id number] 11/08/2016 09:59:07 7 13:21:00 [facility] [id number] 11/08/2016 11:34:50 Document Registration [id number] 06/27/2019 15:53:00 020 17:25:00 DIS Emergency CARLOS ENRIQUE DONALDSON DO [facility] ER FS [facility] [id number] 2019 14:52:00 Document Registration
[2019-06-30 15:04] LABS: BASOPHILS % (AUTO) 0 % (0-10); EOSINOPHILS % (AUTO) 0 % (0-10); HEMATOCRIT 42 % (35-52); LYMPHOCYTES % (AUTO) 20 % (12-44); MEAN CORPUSCULAR HEMOGLOBIN 27 PG (25-34); MEAN CORPUSCULAR HGB CONC 33 G/DL (32-36); MEAN CORPUSCULAR VOLUME 81 FL (80-99); MEAN PLATELET VOLUME 10.4 FL (7.4-10.4); MONOCYTES # (AUTO) 0.4 X 10^3 (0.0-1.0); MONOCYTES % (AUTO) 7 % (0-12); NEUTROPHILS # (AUTO) 3.8 X 10^3 (1.8-7.8); NEUTROPHILS % (AUTO) 73 % (42-75); PLATELET COUNT 151 10^3/uL (130-400); RED CELL DISTRIBUTION WIDTH 13.7 % (10.0-14.5); WHITE BLOOD COUNT 5.2 10^3/uL (4.3-11.0)
--- NOTE | 2019-06-30 15:07 | Diagnostic Imaging Report ---
INDICATION: Fever and abdominal pain. TIME OF EXAM: 2:58 p.m. COMPARISON: Correlation is made with prior chest from 06/27/2019. FINDINGS: The heart size is normal. The pulmonary vascularity is unremarkable. The lungs are clear. No infiltrate, effusion or pneumothorax is detected. IMPRESSION: No acute cardiopulmonary process is detected. Dictated by: Dictated on workstation # [id number]
[2019-06-30 15:12] LABS: AMPHETAMINE SCREEN, URINE NEGATIVE (NEGATIVE); BARBITURATE SCREEN URINE NEGATIVE (NEGATIVE); BENZODIAZEPINES SCREEN URINE NEGATIVE (NEGATIVE); CANNABINOID SCREEN, URINE NEGATIVE (NEGATIVE); COCAINE SCREEN URINE NEGATIVE (NEGATIVE); METHADONE STAT NEGATIVE (NEGATIVE); METHAMPHETAMINE SCREEN URINE S NEGATIVE (NEGATIVE); OPIATE SCREEN URINE NEGATIVE (NEGATIVE); OXYCODONE STAT NEGATIVE (NEGATIVE); PROPOXYPHENE STAT NEGATIVE (NEGATIVE); TRICYCLIC ANTIDEPRESSANTS SCRE NEGATIVE (NEGATIVE)
[2019-06-30 15:16] LABS: CLARITY,URINE CLEAR; COLOR,URINE YELLOW; PH,URINE 7.5 (5-9); PROTEIN,URINE NEGATIVE (NEGATIVE)
[2019-06-30 15:17] LABS: BACTERIA,URINE NEGATIVE /HPF; BILIRUBIN,URINE NEGATIVE (NEGATIVE); GLUCOSE, URINE (UA) NEGATIVE (NEGATIVE); KETONES,URINE TRACE (NEGATIVE); LEUKOCYTE ESTERASE ,URINE NEGATIVE (NEGATIVE); NITRITE,URINE NEGATIVE (NEGATIVE); WBC,URINE RARE /HPF
[2019-06-30 15:26] LABS: ALANINE AMINOTRANSFERASE 34 U/L (0-55); ALBUMIN 3.9 GM/DL (3.2-4.5); ALKALINE PHOSPHATASE 58 U/L (40-136); BILIRUBIN,TOTAL 0.2 MG/DL (0.1-1.0); BUN/CREATININE RATIO 6; CALCIUM 8.9 MG/DL (8.5-10.1); CARBON DIOXIDE 25 MMOL/L (21-32); CHLORIDE 101 MMOL/L (98-107); CREATININE SERUM 0.96 MG/DL (0.60-1.30); GFR ESTIMATED > 60; GLUCOSE 110 MG/DL (70-105); SODIUM 138 MMOL/L (135-145); TOTAL PROTEIN 7.6 GM/DL (6.4-8.2)
[2019-06-30 16:12] LABS: BAND NEUTROPHILS 24 %; BASOPHILS % (MANUAL) 0 %; EOSINOPHILS % (MANUAL) 0 %; LYMPHOCYTES % (MANUAL) 20 %; MONOCYTES % (MANUAL) 8 %; NEUTROPHILS % (MANUAL) 48 %; RBC MORPH NORMAL
--- NOTE | 2019-06-30 16:20 | NUR ---
To room to discuss patient tearful and very upset she will not take "a viral illness" as a diagnosis. Pt pulling cell phone out again and wanting to show discharge from vagina that has been being expelled this week which pt was placed in a pelvic exam yesterday by [facility] provider to investigate and STD cultures obtained which are reported negative. Pt is on Flagyl, Azithromycin, Doxycycline, Acyclovir, and possibly other things like Zofran. Dr has palpated firmly over the quadrants of pt's abd without reported tenderness. explained no air traffic systems technician available here and labs are improved and stable and she will be referred to her PCP for further options: ultrasound, [employer] referral, other testing not available or done in an ER setting. Pt encouraged to not use the "vaginal cup" insertion she has been doing; refrain to pelvic rest (no intercourse, douche, tampons, or anything in vagina.) Pt did verbalize to this nurse when asking about sexually active? monoganous? protected via condom? and pt replied that when questioned she is assuming inquiring in a relationship. Pt states. "No I am not sleeping around!" Nurse apologizes that the questions are used as a reporting assessment to Dr to determine what may be possibly need ordered. Pt has taken extreme sensitivity to questions asking more history as her concern of fever changes to focus that "no one cares about my vaginal discharge." and RN express what the purpose of Emergency Room testing capability is and that fever is not uncommon in viral illness and WBC and sepsis marker Lactic Acid are normal in absence of no extreme palpable pain/discomfort. Urinary symptoms denied.
--- NOTE | 2019-06-30 16:40 | NUR ---
Continued discussion reiterating these questions and answers. Pt tearful and requesting IV dc'd. Pt is denying she is active on her [facility] unit now and is "deactivated". Dr had requested patient to do follow up with her provider and inform her commanding officer. explained to patient that "HIGH" temp in greater than 103.0 and not breaking. Pt reported feeling fever coming on in ED and spot checks revealed from 37.5 (oral) - 38.5 (temporal). explained these are considered low grade and they are reported as responding to antipyretics that she uses at home. Pt wants an answer to the cause of fever which is unable to be provided at this time other than viral illness.
[2019-06-30 17:00] VITALS: BP 115/68
--- NOTE | 2019-06-30 17:00 | NUR ---
Pt departed at this time with appropriate discharge instructions reviewed. Pt is departing with copies of her labs done in ER. Reviewed signs and syptoms to return to ED for.
== END 2019-06-30 17:00 | disposition home or self-care (01) ==
LOC: EDUNIT# 13:58 → ER FS 14:01
DX: E86.0 Dehydration (principal); B34.9 Viral infection, unspecified; N76.0 Acute vaginitis
CPT/HCPCS: 36415; 71045; 80053; 80306; 81000; 83605; 84703; 85007; 85027; 87040; 87430; 87491; 87804

== ENCOUNTER → 2019-08-29 | Outpatient (CLI) | payer OTHER ==
--- NOTE | 2019-08-29 19:27 | Diagnostic Imaging Report ---
INDICATION: Left ankle injury and pain. TIME OF EXAM: 05:32 p.m. FINDINGS: Three views of the left ankle were obtained. Alignment is normal. Ankle mortise is well maintained. Talar dome is smooth. No fracture or dislocation is seen. There is some soft tissue swelling about the lateral ankle. IMPRESSION: Lateral ankle swelling. No acute bony abnormality is detected. Dictated by: Dictated on workstation # [id number]
== END ==
LOC: RAD FS 17:15
PROVIDERS: ATTEND Nurse Practitioner
DX: M25.472 Effusion, left ankle (principal)
CPT/HCPCS: 73610

== ENCOUNTER → 2021-01-09 | Outpatient (CLI) | payer SELFPAY | LOC: LAB FS 10:21 | PROVIDERS: ATTEND Nurse Practitioner Family | DX: O20.9 Hemorrhage in early pregnancy, unspecified (principal) | CPT/HCPCS: 36415; 84702 ==